=== PATIENT | female | born 1985 | race Two or more races ===

== ENCOUNTER 2016-10-16 17:05 | Emergency (ER) | payer MEDICAID ==
[~2016-10-16] VITALS: Ht 162.6 cm; Wt 72.6 kg
[~2016-10-16 17:05] MED LIST: No meds per pt.; ONDA4TAB7 PO; ONDA8TAB9 PO; OXYC-223 PO; OXYC-302 PO
[2016-10-16] MEDS ORDERED: MORPHINE SULFATE 4 MG/ML, 1ML IVPush PRN (17:30)
[2016-10-16] MEDS ORDERED: ONDANSETRON 2MG/ML, 2ML IVPush ONE (17:30)
[2016-10-16] MEDS ORDERED: SODIUM CHLORIDE 0.9% 1,000ML IVBOLUS ONE (17:30)
[2016-10-16] MEDS ORDERED: SODIUM CHLORIDE FLUSH 10ML SYR IVF ONE (17:30)
[2016-10-16] MEDS ORDERED: MORPHINE SULFATE 4 MG/ML, 1ML ONE (17:49)
[2016-10-16] MEDS ORDERED: ONDANSETRON 2MG/ML, 2ML ONE (17:49)
[2016-10-16 18:02] LABS: ASPARTATE AMINO TRANSFERASE 19 U/L (15-37); BLOOD UREA NITROGEN 12 mg/dL (7-18)
[2016-10-16 18:56] LABS: ANISOCYTOSIS 1+; HYPOCHROMIA 1+; MICROCYTOSIS 1+; OVALOCYTES 1+
[2016-10-16] MEDS ORDERED: OMNIPAQUE 350 MG/ML, 100ML BOTTLE ONE (19:09)
[2016-10-16 21:20] VITALS: BP 103/76
== END 2016-10-16 21:24 | disposition home or self-care (01) ==
LOC: ED 18:24
DX: R10.84 Generalized abdominal pain (principal)
CPT/HCPCS: 36415; 74177; 76700; 80053; 81003; 83690; 84703; 85025; 96361; 96374; 96375; 99285; J2405; J7030; Q9967

== ENCOUNTER 2016-10-22 17:59 | Emergency (ER) | payer MEDICAID ==
[~2016-10-22] VITALS: Ht 162.6 cm; Wt 72.8 kg
[2016-10-22] MEDS ORDERED: SODIUM CHLORIDE FLUSH 10ML SYR IVF ONE (18:30)
[2016-10-22] MEDS ORDERED: SODIUM CHLORIDE 0.9% 1,000ML IVBOLUS ONE ×2 (18:30→19:00)
[2016-10-22] MEDS ORDERED: ONDANSETRON 2MG/ML, 2ML ONE (18:44)
[2016-10-22] MEDS ORDERED: MORPHINE SULFATE 4 MG/ML, 1ML ONE ×2 (18:44→20:00)
[2016-10-22 18:51] LABS: HEMATOCRIT 37.4 % (34.6-47.8); HEMOGLOBIN 11.9 g/dL (11.7-16.4); WHITE BLOOD COUNT 6.3 x10^3/uL (3.4-10)
[2016-10-22 19:00] LABS: ASPARTATE AMINO TRANSFERASE 19 U/L (15-37); BLOOD UREA NITROGEN 10 mg/dL (7-18)
[2016-10-22] MEDS: MORPHINE SULFATE 4 MG/ML, 1ML IVPush PRN ×2 (19:00→20:03)
[2016-10-22] MEDS ORDERED: ONDANSETRON 2MG/ML, 2ML IVPush ONE (19:00)
[2016-10-22 19:10] LABS: ANISOCYTOSIS 1+; MICROCYTOSIS 1+
[2016-10-22 19:11] LABS: HYPOCHROMIA 1+
[2016-10-22 19:45] LABS: PATH.CAST-FLAG NOT PRESENT; SPERM-FLAG NOT PRESENT; SRC-FLAG NOT PRESENT; XTAL-FLAG NOT PRESENT; YLC-FLAG NOT PRESENT
[2016-10-22 21:23] VITALS: BP 93/59
== END 2016-10-22 21:26 | disposition home or self-care (01) ==
LOC: ED 20:11
DX: R10.11 Right upper quadrant pain (principal); C53.9 Malignant neoplasm of cervix uteri, unspecified; Z90.49 Acquired absence of other specified parts of digestive tract; Z90.710 Acquired absence of both cervix and uterus
CPT/HCPCS: 36415; 76700; 80053; 81003; 83690; 84703; 85025; 96361; 96374; 96375; 96376; 99285; J2405; J7030

== ENCOUNTER → 2017-05-06 | Outpatient (CLI) | payer MEDICAID ==
[~2017-05-06] MED LIST changes: +OMNIPAQUE 350 MG/ML, 100ML BOTTLE ONE; -OXYC-223 PO; +OXYC-306 PO
== END | disposition home or self-care (01) ==
LOC: CFH 11:23
PROVIDERS: ATTEND Specialist
DX: C79.51 Secondary malignant neoplasm of bone (principal); C53.0 Malignant neoplasm of endocervix
CPT/HCPCS: 74177; Q9967

== ENCOUNTER 2019-10-18 00:16 | Emergency (ER) | payer SELFPAY ==
[~2019-10-18 00:16] MED LIST changes: -OMNIPAQUE 350 MG/ML, 100ML BOTTLE ONE
== END 2019-10-18 00:40 ==
LOC: ED 00:20
DX: Z53.21 Procedure and treatment not carried out due to patient leaving prior to being seen by health care provider (principal)